=== PATIENT | female | born 1965 | race Asian ===

== ENCOUNTER 2018-06-28 04:15 | Emergency (ER) | payer SELFPAY ==
[~2018-06-28] VITALS: Ht 157.5 cm; Wt 68.0 kg
[2018-06-28 04:17] VITALS: BP 135/82
[2018-06-28 06:24] LABS: Urine Bacteria NONE SEEN /hpf (None Seen); Urine Blood Negative /uL (Negative); Urine Specific Gravity 1.006 (1.001-1.035); Urine WBC 1 /hpf (0 - 5)
[2018-06-28] MEDS ORDERED: AML5T PO (22:26)
[2018-06-28] MEDS ORDERED: ASPI81CH43 PO (22:26)
[2018-06-28] MEDS ORDERED: ATOR20TA50 PO (22:26)
[2018-06-28] MEDS ORDERED: CLOP75TA28 PO (22:26)
[2018-06-28] MEDS ORDERED: CHLO25TA22 PO (22:26)
[2018-06-28] MEDS ORDERED: METF-370 PO (22:26)
[2018-06-28] MEDS ORDERED: TELM80TA PO (22:26)
[2018-06-28] MEDS ORDERED: POM PO (22:28)
== END 2018-06-28 08:44 | disposition left against medical advice (07) ==
LOC: ER 04:19
DX: R07.9 Chest pain, unspecified (principal); Z53.21 Procedure and treatment not carried out due to patient leaving prior to being seen by health care provider
CPT/HCPCS: 71045; 81001; 93005

== ENCOUNTER 2018-06-28 14:38 | Inpatient (IN) | payer SELFPAY ==
[~2018-06-28] VITALS: Ht 154.9 cm; Wt 60.5 kg
[2018-06-28 15:18] LABS: Basophils # (auto) 0.1 uL; Eosinophils # (auto) 0.2 uL; Eosinophils % (auto) 1.1 % (0.0-7.0); Hemoglobin 11.8 g/dL (12.2-16.2); Mean Corpuscular Hemoglobin 25.5 pg (28.0-32.0); Mean Corpuscular Hgb Conc. 32.5 g/dL (32.0-36.0); Mean Corpuscular Volume 78.4 fL (80.0-100.0); Monocytes # (auto) 0.9 uL; Monocytes % (auto) 6.2 % (0.0-12.0); White Blood Cell 14.8 10^3/uL (4.4-10.8)
[2018-06-28 15:19] LABS: Basophils % (auto) 0.9 % (0.0-2.0); Hematocrit 36.2 % (36.0-46.0); Lymphocytes # (auto) 3.4 uL; Lymphocytes % (auto) 22.7 % (10.0-50.0); Neutrophils # (auto) 10.2 uL; Neutrophils % (auto) 69.1 % (37.0-80.0); Nucleated Red Blood Cells % 0.1 %; Platelet Count (auto) 473 10^3/uL (140-450); Red Blood Cells 4.62 10^6/uL (4.0-5.20); Red Cell Distribution Width 13.7 % (11.8-14.3)
[2018-06-28] MEDS ORDERED: LORazepam 0.5 MG TAB PO ONE (15:45)
[2018-06-28] MEDS ORDERED: ASPirin 81 mg TAB PO ONE (15:45)
[2018-06-28 16:15] LABS: Alanine Aminotransferase 21 U/L (13-56); Albumin 4.7 g/dL (3.4-5.0); Anion Gap 9 (5-15); Aspartate Aminotransferase 10 U/L (15-37); BUN/Creatinine Ratio 15.1; Blood Urea Nitrogen 11 mg/dL (7-18); Calcium 9.3 mg/dL (8.5-10.1); Carbon Dioxide 27 mmol/L (21-32); Chloride 94 mmol/L (98-107); GFR African American 107 mL/min; GFR Non-African American 89 mL/min; Glucose 110 mg/dL (74-106); Magnesium 2.4 mg/dL (1.6-2.6); Potassium 4.1 mmol/L (3.5-5.1); Sodium 130 mmol/L (136-145)
[2018-06-28 16:19] LABS: Alkaline Phosphatase 88 U/L (45-117); Bilirubin, Total 0.6 mg/dL (0.2-1.0); Total Protein 9.3 g/dL (6.4-8.2)
[2018-06-28] MEDS ORDERED: PROMETHAZINE HCL 25 MG/ML 1ML IV PRN (18:30)
[2018-06-28] MEDS ORDERED: HYDROcodone-ACET 5/325MG TAB PO PRN (18:30)
[2018-06-28] MEDS ORDERED: LORazepam 0.5 MG TAB PO PRN (18:30)
[2018-06-28] MEDS ORDERED: NITROGLYCERIN 0.4 MG SL TAB SL PRN (18:30)
[2018-06-28] MEDS ORDERED: TEMAZEPAM 15 MG CAP PO PRN (18:30)
[2018-06-28] MEDS ORDERED: ALBUTEROL SULF 2.5 MG/0.5ML(0.5%) NEB SOLN NEB PRN (18:30)
[2018-06-28] MEDS ORDERED: ACETAMINOPHEN 500 MG TAB PO PRN (18:30)
[2018-06-28] MEDS ORDERED: MORPHINE SULFATE 10 MG/ML INJ 1ML SDV IV PRN ×2 (18:30)
[2018-06-28] MEDS ORDERED: LACTULOSE 20Gm/30ML SOLN PO PRN (18:30)
[2018-06-28] MEDS: SODIUM CHLORIDE 0.9% 1,000 ML IV SCH (18:56)
--- NOTE | 2018-06-28 19:25 | NUR ---
Respiratory note: ASSESSED PT FOR PRN MED NEB AT THIS TIME, PT DENIES SOB AT THIS TIME, NO RESP DISTRESS NOTED, NO TX INDICATED, PULSE OX 100% ON RA, HR 103, RR 18, BILATERAL BS DIMINISHED
[2018-06-28 20:30] VITALS: BP 132/71
--- NOTE | 2018-06-28 21:21 | NUR ---
Telemetry admit from [facility] admitted to Telemetry unit after SBAR received from ED Nurse. Patient oriented to ANA JORDAN, RN primary RN, unit, room, bed, and unit policies regarding patient care and visiting hours. Patient now on continuous telemetry monitoring, tele box # 14. Patient weighed by bedscale and encouraged to call if they need something. All questions and concerns addressed with help from daughter who was at bedsde. Bed is in lowest position, bed rails up x2. Patient is in no visible distress with no SOB and VSS.
[2018-06-28] MEDS ORDERED: METOPROLOL TARTRATE 50 MG TAB PO ONE (22:00)
[2018-06-28] MEDS ORDERED: ATORVASTATIN 20 MG TAB PO SCH (22:00)
[2018-06-28 22:08] VITALS: BP 149/81
[2018-06-28] MEDS ORDERED: AML5T PO (22:26)
[2018-06-28] MEDS ORDERED: METF-370 PO (22:26)
[2018-06-28] MEDS ORDERED: CHLO25TA22 PO (22:26)
[2018-06-28] MEDS ORDERED: ATOR20TA50 PO (22:26)
[2018-06-28] MEDS ORDERED: ASPI81CH43 PO (22:26)
[2018-06-28] MEDS ORDERED: TELM80TA PO (22:26)
[2018-06-28] MEDS ORDERED: CLOP75TA28 PO (22:26)
[2018-06-28] MEDS ORDERED: POM PO (22:28)
[2018-06-28 22:29] VITALS: BP 149/81
[2018-06-28] MEDS: metroNIDAZOLE 500 MG TAB PO SCH (22:30)
[2018-06-29 05:22] VITALS: BP 109/72
[2018-06-29] MEDS: metroNIDAZOLE 500 MG TAB PO SCH ×2 (06:05→13:12)
[2018-06-29 06:56] LABS: Eosinophils # (auto) 0.2 uL; Lymphocytes # (auto) 2.4 uL; Monocytes # (auto) 0.8 uL; Red Blood Cells 4.37 10^6/uL (4.0-5.20)
[2018-06-29 06:58] LABS: Basophils # (auto) 0.1 uL; Basophils % (auto) 0.5 % (0.0-2.0); Eosinophils % (auto) 1.8 % (0.0-7.0); Hematocrit 34.1 % (36.0-46.0); Hemoglobin 11.2 g/dL (12.2-16.2); Lymphocytes % (auto) 21.4 % (10.0-50.0); Mean Corpuscular Hemoglobin 25.6 pg (28.0-32.0); Mean Corpuscular Hgb Conc. 32.8 g/dL (32.0-36.0); Mean Corpuscular Volume 78.1 fL (80.0-100.0); Monocytes % (auto) 7.3 % (0.0-12.0); Neutrophils # (auto) 7.7 uL; Platelet Count (auto) 387 10^3/uL (140-450); Red Cell Distribution Width 13.3 % (11.8-14.3); White Blood Cell 11.1 10^3/uL (4.4-10.8)
[2018-06-29 07:18] LABS: Albumin 3.8 g/dL (3.4-5.0); Calcium 9.1 mg/dL (8.5-10.1); Potassium 3.9 mmol/L (3.5-5.1)
[2018-06-29 07:22] LABS: BUN/Creatinine Ratio 14.1; Bilirubin, Total 0.4 mg/dL (0.2-1.0); Total Protein 7.7 g/dL (6.4-8.2)
--- NOTE | 2018-06-29 07:30 | NUR ---
Patient in bed, asleep. No acute distress noted. Received report patient speaks dialect.
[2018-06-29] MEDS: SODIUM CHLORIDE 0.9% 1,000 ML IV SCH (07:45)
--- NOTE | 2018-06-29 07:50 | NUR ---
Received a call from AFTAB Alexis to keep patient NPO, give the anti-hypertensive medications; patient scheduled for CT Angio Chest today.
[2018-06-29] MEDS ORDERED: NITROGLYCERIN 0.4 MG SL TAB SL ONE (08:08)
[2018-06-29] MEDS ORDERED: METOPROLOL TARTRATE 1MG/1ML-5ML VIAL IV ONE ×2 (08:09→08:26)
--- NOTE | 2018-06-29 08:15 | NUR ---
AFTAB Alexis at bedside.
[2018-06-29 09:00] VITALS: BP 103/63
--- NOTE | 2018-06-29 09:27 | NUR ---
Patient taken by Tech to Radiology via wheelchair. Daughter with the patient.
[2018-06-29] MEDS ORDERED: ASPirin 81 mg TAB PO SCH (10:00)
[2018-06-29] MEDS ORDERED: ENOXAPARIN SOD 40 MG/0.4 ML SYRINGE SC SCH (10:00)
[2018-06-29] MEDS ORDERED: PANTOPRAZOLE 40 MG TAB PO SCH (10:00)
[2018-06-29] MEDS ORDERED: NITROGLYCERIN 0.2MG/HR TOPICAL PATCH TD SCH (10:00)
--- NOTE | 2018-06-29 10:00 | NUR ---
UNABLE TO DO CCTA. HR REMAINED IN 70'S AFTER 25MG OF IV LOPRESSOR. ADVISED BY DR JEFFERY TO CANCEL EXAM. ROBERTO CARLOS UGALDE INFORMED.
--- NOTE | 2018-06-29 10:14 | NUR ---
Patient back to room. Unable to do the CT Angio chest because of elevated heart rate as per RN Vanesa. Patient allowed to eat. Daughter at bedside.
--- NOTE | 2018-06-29 10:35 | NUR ---
T = 98.4 F, P = 84, RR = 18, BP = 114/70, O2 Sat = 100% on room air. No acute distress noted. Daughter at bedside.
--- NOTE | 2018-06-29 10:50 | NUR ---
Patient's daughter stated patient takes Metformin 500 mg three times a day at home for diabetes. Explained to patient and daughter that there's no order for Metformin at this time, I have to inform the doctor first. Will page .
--- NOTE | 2018-06-29 11:00 | NUR ---
Dr. Zuleta called back. made aware patient takes Metformin 500 mg three times a day at home as per daughter. Dr. Zuleta said she will see the patient first. No new orders given.
--- NOTE | 2018-06-29 11:10 | NUR ---
Called [facility] ([phone]). Spoke with Jaz. Medical Records .
--- NOTE | 2018-06-29 11:14 | NUR ---
Keep patient NPO for Java Software Architect procedure as per AFTAB Alexis.
--- NOTE | 2018-06-29 11:30 | NUR ---
Request for disclosure of health information (Stress Test Results) sent via fax ([phone]) to [facility].
--- NOTE | 2018-06-29 11:34 | NUR ---
Dr. Zuleta came over. ordered mild moderate sliding scale for Accu check; hold the Metformin. Will inform the patient and daughter.
[2018-06-29] MEDS ORDERED: DEXTROSE (50%) 50ML SYRG IV PRN (11:45)
--- NOTE | 2018-06-29 11:55 | NUR ---
Dr. Filippo blas MD said Dr. Bennett will do a procedure at [facility], ordered to bring the patient to [facility] now.
[2018-06-29] MEDS ORDERED: IODIXANOL 320MG/ML 100ML BTL IV ONE (11:57)
[2018-06-29] MEDS ORDERED: LIDOCAINE 2%HCL (LOCAL ANESTH.) INJ 20ML MDV ONE (11:57)
--- NOTE | 2018-06-29 12:00 | NUR ---
Patent transported via bed to Registration Coordinator. Daughter with patient. IV line intact, Telemetry pack on. Patient speaks dialect, does not speak Lebanese. Daughter speaks Lebanese. No acute distress noted. Endorsed patient to Registration Coordinator AFTAB Staton.
[2018-06-29] MEDS ORDERED: ANGIOMAX 250 MG VIAL IV ONE (12:35)
[2018-06-29] MEDS ORDERED: fentaNYL CITRATE 100 MCG/2 ML VL ONE (12:36)
[2018-06-29] MEDS ORDERED: SODIUM CHL 0.9% 0 ML ONE (12:36)
[2018-06-29] MEDS ORDERED: MIDAZOLAM HCL 1MG/1ML-2 ML VIAL ONE (12:36)
[2018-06-29] MEDS ORDERED: VERAPAMIL 2.5MG/ML INJ 2ML VIAL IV ONE (12:44)
[2018-06-29 13:01] VITALS: BP 114/70
--- NOTE | 2018-06-29 13:10 | NUR ---
Dr. Shaikh called. MEYER made aware patient is at [facility] at this time.
--- NOTE | 2018-06-29 14:28 | NUR ---
Received report from Recruiting Administrator AFTAB Dewey that patient's Left Heart Cath came out negative, accessed the right radial (deflate the balloon at 1435 pm), resume previous diet, allowed to ambulate.
--- NOTE | 2018-06-29 14:55 | NUR ---
Patient back to room post Left heart Cath, right radial on vasc band, deflate 1 ml every after 30 minutes; when fully deflatedwith no bleeding noted, apply gauze and Tegaderm. Patient is awake, oriented x4. No acute distress noted. Daughter at bedside.
--- NOTE | 2018-06-29 15:00 | NUR ---
Blood sugar = 114 mg/dl. Patient to eat lunch. No nausea/vomiting noted. Daughter at bedside.
--- NOTE | 2018-06-29 15:00 | NUR ---
Explained to patient and daughter that Dr. Zuleta ordered to hold Metformin. Hold the Metformin for three days as per Building Manager AFTAB Dewey; Dr. Zuleta has to call Dr. Gillespie regarding patient's Lipitor dosage.
--- NOTE | 2018-06-29 15:28 | NUR ---
Patient's daughter stated the patient cannot get up and walk at this time, refused bedside commode. Explained to patient and daughter patient is allowed to walk, with assist when needed. Daughter stated not at this time. Will provide bedpan.
--- NOTE | 2018-06-29 15:30 | NUR ---
Assisted the patient with bedpan. Daughter at bedside.
--- NOTE | 2018-06-29 15:36 | NUR ---
Patient stated she's done with the bedpan. AYAN Gramajo at bedside.
--- NOTE | 2018-06-29 16:10 | NUR ---
Dr. Zuleta called that patient can go home, that it's okay to discharge the patient today as per Dr. Gillespie, that I should follow up with Dr. Bennett if patient is okay to go home as per Cardiology.
--- NOTE | 2018-06-29 16:30 | NUR ---
Dr. Gillespie at bedside. MD ordered patient okay to go home today, he will put in discharge orders. Daughter at bedside.
--- NOTE | 2018-06-29 16:35 | NUR ---
Called Dr. Bennett. made aware that as per Dr. Gillespie, patient is okay to go home today. Dr. Bennett ordered patient okay to go home as per Cardiology, patient should not take Metformin for three days starting today, to ; resume Metformin as ordered on 2018.
--- NOTE | 2018-06-29 16:37 | NUR ---
Dr. Gillespie made aware Dr. Bennett ordered patient okay to go home today, patient should not take Metformin for three days starting today to ; resume Metformin on [address] Gillespie said he will put in discharge orders and will write prescription.
[2018-06-29] MEDS ORDERED: InsuLIN REG 1unit/0.01ml Soln (100units/ml) SC SCH (17:00)
[2018-06-29] MEDS ORDERED: ACCU-CHEK COMFORT CURVE STRIP VI SCH (17:00)
--- NOTE | 2018-06-29 17:10 | NUR ---
Dr. Gillespie came over for patient's prescription and discharge orders, hold Metformin for three days ( to 2018). Resume on 2018.
[2018-06-29 17:25] VITALS: BP 106/66
[2018-06-29 18:03] VITALS: BP 106/66
--- NOTE | 2018-06-29 18:30 | NUR ---
Explained to patient and daughter, hold Metformin for three days ( to Jul 02). Patient to resume Metformin on 2018 as ordered. Patient and daughter verbalized understanding.
--- NOTE | 2018-06-29 18:35 | NUR ---
VascBand on right radial deflated, no bleeding noted on the site. Applied sterile gauze and Tegaderm on right radial. Pressure dressing clean, dry and intact.
--- NOTE | 2018-06-29 19:00 | NUR ---
Discharge instructions given as ordered. Encourage to follow up with PMD as instructed. Patient to look for a primary physician. All questions and concerns addressed. Patient does not speak Yoruba. Daughter at bedside, translated for the patient. Medication reconciliation form completed and copy given to patient. IV removed with catheter intact, pressure dressing applied. Telemetry unit returned to TRA. Patient taken to vehicle via wheelchair with all personal belongings, accompanied by staff and family member. No distress noted at time of departure.
== END 2018-06-29 19:00 | disposition home or self-care (01) | DRG 287 ==
LOC: ER 14:44 → TELE 18:28 → TELE-CENTR 21:20
PROVIDERS: ADMIT Internal Medicine; ATTEND Internal Medicine
PROC: 4A023N7 Measurement of Cardiac Sampling and Pressure, Left Heart, Percutaneous Approach (ICD-10-PCS; principal; 2018-06-29)
PROC: B2111ZZ Fluoroscopy of Multiple Coronary Arteries using Low Osmolar Contrast (ICD-10-PCS; 2018-06-29)
PROC: B2151ZZ Fluoroscopy of Left Heart using Low Osmolar Contrast (ICD-10-PCS; 2018-06-29)
DX: R07.89 Other chest pain (principal); I24.9 Acute ischemic heart disease, unspecified; E87.1 Hypo-osmolality and hyponatremia; D63.8 Anemia in other chronic diseases classified elsewhere; D72.829 Elevated white blood cell count, unspecified; E11.9 Type 2 diabetes mellitus without complications; E78.5 Hyperlipidemia, unspecified; I11.9 Hypertensive heart disease without heart failure; I25.10 Atherosclerotic heart disease of native coronary artery without angina pectoris; Z79.899 Other long term (current) drug therapy; Z82.49 Family history of ischemic heart disease and other diseases of the circulatory system; Z90.710 Acquired absence of both cervix and uterus
CPT/HCPCS: 36415; 80053; 80061; 82550; 82962; 83735; 84443; 84484; 85025; 85379; 85652; 86141; 93306; 94761; 96360; A6257; G0378; J1815; J2250; Q9967